=== PATIENT | female | born 1940 | race Two or more races ===

== ENCOUNTER 2016-10-27 20:28 | Emergency (ER) | payer OTHER, MEDICARE ==
[~2016-10-27] VITALS: Ht 162.6 cm; Wt 52.4 kg
[2016-10-27 22:57] LABS: ADD MIUA? YES; BILIRUBIN NEGATIVE; BLOOD NEGATIVE; COLOR YELLOW ((YELLOW)); GLUCOSE (STRIP) NEGATIVE; KETONES 5; LEUKOCYTES LARGE; NITRITE NEGATIVE; PROTEIN (STRIP) NEGATIVE; SPECIFIC GRAVITY 1.009 (1.000-1.030); UROBILINOGEN 0.2 MG/DL (0.2-1.0)
[2016-10-27] MEDS ORDERED: KEFLEX500 MG PO (23:28)
[2016-10-27 23:46] LABS: BACTERIA 2+ /HPF; RED BLOOD CELLS NONE SEEN /HPF (0-5); WHITE BLOOD CELLS TNTC /HPF (0-5)
[2016-10-27 23:47] LABS: EPITHELIAL CELLS RARE /HPF; MUCUS NONE SEEN /LPF
[2016-10-28 01:14] VITALS: BP 124/82
== END 2016-10-28 01:15 | disposition home or self-care (01) ==
LOC: EME → EDBD 20:28 → EME 10-28 01:15
PROVIDERS: Emergency Medicine
DX: N39.0 Urinary tract infection, site not specified (principal); S50.311A Abrasion of right elbow, initial encounter; S22.41XA Multiple fractures of ribs, right side, initial encounter for closed fracture; M25.551 Pain in right hip; W19.XXXA Unspecified fall, initial encounter; Y92.193 Bedroom in other specified residential institution as the place of occurrence of the external cause; R09.02 Hypoxemia; F03.90 Unspecified dementia, unspecified severity, without behavioral disturbance, psychotic disturbance, mood disturbance, and anxiety
CPT/HCPCS: 70450; 71111; 73080; 73502; 81003; 87086; 99281; 99285

== ENCOUNTER 2016-10-30 16:09 | Inpatient (IN) | payer OTHER, MEDICARE ==
[~2016-10-30] VITALS: Ht 167.6 cm; Wt 49.4 kg
[~2016-10-30 16:09] MED LIST: KEFLEX500 MG PO
[2016-10-30 16:49] LABS: BASOPHIL COUNT 0.1 K/uL (0-0.1); EOSINOPHIL COUNT 0.1 K/uL (0-0.3); HEMATOCRIT 42.5 % (36.0-46.0); IMMATURE GRANULOCYTE (%) 0.3 % (0.0-0.7); LYMPHOCYTE COUNT 3.2 K/uL (1.0-2.8); MCHC 31.5 G/DL (30.0-36.0); MCV 95.3 FL (83-99); MEAN PLAT.VOLUME 10.4 uM^3 (9.5-12.4); MONOCYTE (%) 9.9 % (3-12); MONOCYTE COUNT 0.9 K/uL (0-0.8); NEUTROPHIL (%) 53.4 % (45-76); PLATELET COUNT 250 K/uL (156-360); RBC DIS.WIDTH-CV 13.6 % (11.8-14.6); RBC DIS.WIDTH-SD 47.8 % (39-53); RED BLOOD COUNT 4.46 M/uL (3.80-5.20); WHITE BLOOD COUNT 9.3 K/uL (4.1-10.2)
[2016-10-30 17:06] LABS: CHLORIDE 102 mEq/L (99-109); POTASSIUM 4.1 mEq/L (3.7-5.4); SODIUM 139 mEq/L (136-147)
[2016-10-30 17:06] LABS: ADD MIUA? YES; BILIRUBIN NEGATIVE; BLOOD NEGATIVE; COLOR YELLOW ((YELLOW)); GLUCOSE (STRIP) NEGATIVE; KETONES 5; LEUKOCYTES MODERATE; NITRITE NEGATIVE; PROTEIN (STRIP) NEGATIVE; UROBILINOGEN 0.2 MG/DL (0.2-1.0)
[2016-10-30 17:09] LABS: GLUCOSE 100 mg/dL (70-99)
[2016-10-30 17:10] LABS: ANION GAP 13 MEQ/L (2-14)
[2016-10-30 17:11] LABS: TOTAL BILIRUBIN 0.6 mg/dL (0.0-1.0)
[2016-10-30 17:12] LABS: ALKALINE PHOSPHATASE 61 IU/L (3-129); GFR ESTIMATE (CALCULATED) > 59 mL/min/
[2016-10-30] MEDS ORDERED: ELAVIL10 MG PO (17:13)
[2016-10-30 17:14] LABS: UREA NITROGEN (BUN) 22 mg/dL (9-23)
[2016-10-30] MEDS ORDERED: BACIGUENT28.4 GM PO (17:14)
[2016-10-30] MEDS ORDERED: DIVALPROEX SOD125 M1 PO (17:15)
[2016-10-30 17:16] LABS: TROP-I INTERPRETATION NEGATIVE; TROPONIN-I < 0.01 ng/mL (0.0-0.30)
[2016-10-30] MEDS ORDERED: FLOVENT DISKUS1 DIS2 IH (17:16)
[2016-10-30] MEDS ORDERED: MEMANTINE HCL5 MG PO (17:17)
[2016-10-30] MEDS ORDERED: LOSARTAN POTAS100 MG PO (17:17)
[2016-10-30] MEDS ORDERED: PROTONIX40 MG PO (17:18)
[2016-10-30] MEDS ORDERED: ZOLOFT100 MG PO (17:18)
[2016-10-30] MEDS ORDERED: ARICEPT5 MG PO (17:19)
[2016-10-30 17:27] LABS: BACTERIA NONE SEEN /HPF; EPITHELIAL CELLS RARE /HPF; MUCUS TRACE /LPF; RED BLOOD CELLS 0-5 /HPF (0-5); UCUL ADDED? NO; WHITE BLOOD CELLS 20-30 /HPF (0-5)
[2016-10-30] MEDS ORDERED: CEPHALEXIN500 MG PO (20:21)
[2016-10-30] MEDS ORDERED: BENGAY ULTRA S113 GM TP (20:21)
[2016-10-30] MEDS ORDERED: FLONASE16 G1 BOTH NARES (20:22)
[2016-10-30] MEDS ORDERED: TYLENOL REGULA325 MG PO (20:23)
[2016-10-30] MEDS ORDERED: TRIAMCINOLONE A15 GM TP (20:24)
[2016-10-30] MEDS ORDERED: TRAMADOL HCL50 MG PO (20:24)
[2016-10-30] MEDS ORDERED: ROBITUSSIN100 MG/5 M PO (20:24)
[2016-10-30 22:56] VITALS: BP 141/76
[2016-10-31 02:38] VITALS: BP 160/78
[2016-10-31 08:18] VITALS: BP 171/86
[2016-10-31 13:10] VITALS: BP 167/94
[2016-10-31 16:19] VITALS: BP 178/99
[2016-10-31 18:21] VITALS: BP 145/84
[2016-10-31 20:20] VITALS: BP 156/77
[2016-11-01] VITALS (7 sets, daily range): BP systolic 155–178; BP diastolic 77–91
[2016-11-02 04:00] VITALS: BP 159/80
[2016-11-02 06:56] VITALS: BP 161/88
[2016-11-02 11:12] VITALS: BP 159/83
[2016-11-02 15:00] VITALS: BP 180/82
[2016-11-02 18:34] VITALS: BP 141/76
[2016-11-02 22:35] VITALS: BP 149/65
[2016-11-03 03:24] VITALS: BP 171/79
[2016-11-03 07:14] LABS: BASOPHIL COUNT 0.1 K/uL (0-0.1); EOSINOPHIL (%) 4.7 % (0-5); EOSINOPHIL COUNT 0.5 K/uL (0-0.3); IMMATURE GRANULOCYTE (%) 0.4 % (0.0-0.7); LYMPHOCYTE COUNT 3.3 K/uL (1.0-2.8); MCH 30.5 PG (29.0-34.0); MCHC 31.5 G/DL (30.0-36.0); MCV 96.9 FL (83-99); MEAN PLAT.VOLUME 10.5 uM^3 (9.5-12.4); MONOCYTE (%) 8.7 % (3-12); MONOCYTE COUNT 0.8 K/uL (0-0.8); NEUTROPHIL (%) 51.4 % (45-76); PLATELET COUNT 243 K/uL (156-360); RBC DIS.WIDTH-CV 13.4 % (11.8-14.6); RED BLOOD COUNT 4.13 M/uL (3.80-5.20); WHITE BLOOD COUNT 9.7 K/uL (4.1-10.2)
[2016-11-03 07:30] LABS: ANION GAP 9 MEQ/L (2-14); CHLORIDE 100 MEQ/L (99-109); GFR ESTIMATE (CALCULATED) > 59 mL/min/; GLUCOSE 93 mg/dL (70-99); POTASSIUM 3.9 MEQ/L (3.7-5.4); SAMPLE HEMOLYSIS CHECK 0; SAMPLE ICTERIC CHECK 0; SAMPLE LIPEMIA CHECK 0; SODIUM 137 MEQ/L (136-147); UREA NITROGEN (BUN) 9 mg/dL (9-23)
[2016-11-03 08:00] VITALS: BP 133/78
[2016-11-03 11:00] VITALS: BP 155/87
[2016-11-03] MEDS ORDERED: LOPRESSOR25 MG PO (13:33)
[2016-11-03 16:00] VITALS: BP 183/93
== END 2016-11-03 17:20 | disposition home or self-care (01) | DRG 560 ==
LOC: EME 16:09 → EDOF 21:30 → 5EAST 21:30
PROVIDERS: Emergency Medicine; Internal Medicine
DX: S22.41XD Multiple fractures of ribs, right side, subsequent encounter for fracture with routine healing (principal); N39.0 Urinary tract infection, site not specified; Z68.1 Body mass index [BMI] 19.9 or less, adult; J90 Pleural effusion, not elsewhere classified; R13.10 Dysphagia, unspecified; G30.9 Alzheimer's disease, unspecified; K44.9 Diaphragmatic hernia without obstruction or gangrene; Y92.122 Bedroom in nursing home as the place of occurrence of the external cause; R91.8 Other nonspecific abnormal finding of lung field; R47.02 Dysphasia; I10 Essential (primary) hypertension; Z88.8 Allergy status to other drugs, medicaments and biological substances; R41.0 Disorientation, unspecified
CPT/HCPCS: 70450; 71111; 71250; 73080; 73502; 80048; 80053; 81003; 83605; 84484; 85025; 87040; 87086; 92526 GN; 92610 GN; 93005; 97530 GO; 97530 GP; 99281; 99285